=== PATIENT | male | born 1950 | race Caucasian/White ===

== ENCOUNTER → 2019-02-17 19:20 | Outpatient (CLI) | payer MEDICARE, SELFPAY ==
[2019-02-21 08:23] LABS: AST(SGOT) 56 U/L (15-37); Alanine Aminotransfer ALT/SGPT 64 U/L (16-61); Albumin, Serum 3.2 g/dL (3.2-5.0); Alkaline Phosphatase 62 U/L (45-117); Bilirubin, Direct 0.15 mg/dL (0.00-0.30); Creatinine, Serum 0.99 mg/dL (0.70-1.30); EST Glomerular Filtration Rate 79 mL/min (>60); Est Glom Filt Rate - Afr Amer 96 mL/min (>60); Globulin 6.6 g/dL (2.2-4.2); Protein, Total 9.8 g/dL (6.4-8.2)
[2019-02-21 08:25] LABS: Hematocrit 30.5 % (40-54); Hemoglobin 10.3 g/dL (13.0-16.5); Mean Corp Hgb Conc 33.8 g/dL (32-36); Mean Corpuscular Hgb 32.6 pg (27.0-32.0); Mean Corpuscular Volume 96.5 fL (80-94); Mean Platelet Vol. 10.3 fl (6.2-12.0); Platelet Count 216 K/mm3 (150-450); RBC Distribution Width CV 17.2 % (11.6-14.6); Red Blood Count 3.16 M/mm3 (4.6-6.2)
[2019-02-21 08:26] LABS: Absolute Lymphocyte Count 1.17 X10^3/uL (0.83-4.51); Absolute Neutrophil Count 2.6 X10^3/uL (2.0-7.7); Basophil# 0.02 X10^3/uL; Basophil% 0.5 % (0-1); Eosinophil# 0.02 X10^3/uL; Eosinophils% 0.5 % (0-5); Lymphocyte # 1.17 X10^3/ul (4.0); Lymphocyte % 29.4 % (19-41); Monocyte# 0.17 X10^3/uL; Monocyte% 4.3 % (0-10); Neutrophil # 2.58 X10^3/uL (2.7-7.7); Neutrophil % 64.8 % (47-70)
[2019-02-21 08:29] LABS: NRBC Flagged by Analyzer 1.5 % (0-5)
== END ==
PROVIDERS: Visit Provider Family Medicine
DX: R78.81 Bacteremia (principal)
CPT/HCPCS: 80076; 82565; 85025